=== PATIENT | female | born 1985 | race Hispanic/Latino ===

== ENCOUNTER 2017-11-14 12:27 | Emergency (ER) | payer BC, OTHER ==
[2017-11-14] MEDS ORDERED: KETOROLAC TROMETHAMINE 30MG/ML ONE ×2 (13:29→16:05)
[2017-11-14] MEDS ORDERED: ORPHENADRINE CITRATE 30 MG/ML ML ONE ×2 (13:29→16:05)
[2017-11-14] MEDS ORDERED: BACLOFEN 10 MG TABLET PO ONE (16:05)
[2017-11-14] MEDS ORDERED: ONDANSETRON HCL 4 MG/2 ML VIAL ONE (16:05)
[2017-11-14] MEDS ORDERED: MORPHINE SULFATE 8 MG/ML VIAL ONE (16:07)
[2017-11-14 18:13] LABS: BILIRUBIN,URINE Negative (NEGATIVE); COLOR,URINE Yellow (YELLOW); GLUCOSE, URINE (UA) Negative (NEGATIVE); KETONES,URINE Negative (NEGATIVE); LEUKOCYTE ESTERASE ,URINE Negative (NEGATIVE); NITRATE,URINE Negative (NEGATIVE); OCCULT BLOOD,URINE Negative (NEGATIVE); PH,URINE 7.5 (5.0-8.0); PROTEIN,URINE Negative (NEGATIVE)
[2017-11-14 18:16] LABS: APPEARANCE,URINE CLEAR (CLEAR)
== END 2017-11-14 18:59 | disposition home or self-care (01) ==
LOC: EDH 12:27
DX: M62.830 Muscle spasm of back (principal); M54.5 Low back pain
CPT/HCPCS: 81003; 81025; 96374; 96375; 99284; J1885; J2270; J2360; J2405

== ENCOUNTER 2018-10-09 18:11 | Observation (INO) | payer BC, MEDICAID ==
[~2018-10-09] VITALS: Ht 168.9 cm; Wt 65.3 kg
[2018-10-09 19:37] LABS: APPEARANCE,URINE Clear (CLEAR); BILIRUBIN,URINE Negative (NEGATIVE); COLOR,URINE Yellow (YELLOW); GLUCOSE, URINE (UA) Negative (NEGATIVE); KETONES,URINE Negative (NEGATIVE); LEUKOCYTE ESTERASE ,URINE Negative (NEGATIVE); NITRATE,URINE Negative (NEGATIVE); OCCULT BLOOD,URINE Negative (NEGATIVE); PH,URINE 6.5 (5.0-8.0); PROTEIN,URINE Negative (NEGATIVE); UROBILINOGEN,URINE 0.2 mg/dL (0.2-1.0)
[2018-10-09] MEDS ORDERED: CITRIC ACID/SODIUM CITRATE 30 ML UDCUP ONE (23:55)
[2018-10-10] MEDS ORDERED: CITRIC ACID/SODIUM CITRATE 30 ML UDCUP PO SCH
== END 2018-10-10 08:30 | disposition home or self-care (01) ==
LOC: EDH 18:11 → LDH 20:30
PROVIDERS: ADMIT Obstetrics & Gynecology; ATTEND Obstetrics & Gynecology
DX: O42.92 Full-term premature rupture of membranes, unspecified as to length of time between rupture and onset of labor (principal); O26.892 Other specified pregnancy related conditions, second trimester; N89.8 Other specified noninflammatory disorders of vagina; Z3A.16 16 weeks gestation of pregnancy
CPT/HCPCS: 59025; 76805; 76815; 81003; 99284; G0378 ×12

== ENCOUNTER 2018-11-15 11:31 | Observation (INO) | payer BC, MEDICAID ==
[~2018-11-15] VITALS: Ht 168.9 cm; Wt 69.9 kg
[2018-11-15] MEDS ORDERED: LACTATED RINGERS 1000ML IV SCH (13:00)
[2018-11-15] MEDS ORDERED: LOPERAMIDE HCL 2 MG CAP PO SCH (13:00)
[2018-11-15 13:34] LABS: APPEARANCE,URINE Clear (CLEAR); BILIRUBIN,URINE Negative (NEGATIVE); COLOR,URINE Yellow (YELLOW); GLUCOSE, URINE (UA) Negative (NEGATIVE); KETONES,URINE Negative (NEGATIVE); LEUKOCYTE ESTERASE ,URINE Negative (NEGATIVE); NITRATE,URINE Negative (NEGATIVE); OCCULT BLOOD,URINE Negative (NEGATIVE); PH,URINE 6.5 (5.0-8.0); PROTEIN,URINE Negative (NEGATIVE); UROBILINOGEN,URINE 0.2 mg/dL (0.2-1.0)
== END 2018-11-15 13:45 | disposition home or self-care (01) ==
LOC: EDH 11:31 → LDH 11:32
PROVIDERS: ADMIT Obstetrics & Gynecology; ATTEND Obstetrics & Gynecology
DX: O26.892 Other specified pregnancy related conditions, second trimester (principal); R19.7 Diarrhea, unspecified; Z3A.21 21 weeks gestation of pregnancy
CPT/HCPCS: 81003; 99283; G0378 ×2; J7120; 96360; 96361

== ENCOUNTER 2018-11-28 05:26 | Emergency (ER) | payer BC, MEDICAID ==
[2018-11-28] MEDS ORDERED: ALBUTEROL SULFATE 0.083% 2.5 MG/3 ML INH IH ONE (05:40)
[2018-11-28] MEDS ORDERED: PREDNISONE 20 MG TABLET ONE (06:44)
== END 2018-11-28 06:58 | disposition home or self-care (01) ==
LOC: EDH 05:26
DX: O99.512 Diseases of the respiratory system complicating pregnancy, second trimester (principal); J45.31 Mild persistent asthma with (acute) exacerbation; Z3A.23 23 weeks gestation of pregnancy
CPT/HCPCS: 94640